=== PATIENT | male | born 1940 | race Caucasian/White ===

== ENCOUNTER 2018-06-14 08:43 | Day surgery (SDC) | payer MEDICARE ==
[~2018-06-14] VITALS: Ht 177.8 cm; Wt 63.6 kg
[2018-06-14 09:11] LABS: HEMATOCRIT 40.3 % (42.0-54.0); MCH 31.6 pg (26.0-34.0); MCHC 34.7 g/dL (31.0-37.0); MEAN PLATELET VOLUME 9.6 fL (7.4-10.4); RBC 4.43 10x6/uL (4.20-6.10); RDW 16.6 % (11.5-14.5); WBC 6.9 10x3/uL (4.8-10.8)
[2018-06-14 09:14] LABS: ANION GAP 21.4 mmol/L (8-16); CARBON DIOXIDE 19.2 mmol/L (21.0-32.0); CREATININE - SERUM 2.2 mg/dL (0.6-1.3); POTASSIUM - SERUM 3.6 mmol/L (3.5-5.1)
[2018-06-14] MEDS ORDERED: BAYER CHEWABLE81 MG PO (09:21)
[2018-06-14] MEDS ORDERED: C-500500 M1 PO (09:21)
[2018-06-14] MEDS ORDERED: VITAMIN B-121000 MCG PO (09:22)
[2018-06-14] MEDS ORDERED: MERIBIN5 MG PO (09:22)
[2018-06-14 09:23] LABS: CALCIUM 5.9 mg/dL (8.5-10.1)
[2018-06-14] MEDS ORDERED: CALCIUM 250+D T1 TAB PO (09:23)
[2018-06-14] MEDS ORDERED: CELEXA10 MG PO (09:23)
[2018-06-14] MEDS ORDERED: CENTRUM MEN'S1 EACH PO (09:23)
[2018-06-14] MEDS ORDERED: BENADRYL A12.5 MG/5 (09:24)
[2018-06-14] MEDS ORDERED: PROSCAR5 MG PO (09:25)
[2018-06-14] MEDS ORDERED: INLYTA PO (09:27)
[2018-06-14] MEDS ORDERED: MEGACE40 MG PO (09:28)
[2018-06-14] MEDS ORDERED: K-DUR20 MEQ PO (09:29)
[2018-06-14] MEDS ORDERED: SALAGEN5 MG PO (09:29)
[2018-06-14] MEDS ORDERED: PROBIOTIC1 EAC1 PO (09:30)
[2018-06-14 09:41] VITALS: BP 116/79; Ht 177.8 cm; Wt 63.6 kg
--- NOTE | 2018-06-16 14:22 | OP ---
PATIENT NAME: XIANG VICTORIA MEDICAL RECORD: [id number] :38 LOCATION:D[facility] ADMISSION DATE: SURGEON: SHMUEL BOLANOS DO DATE OF OPERATION: 06/14/2018 PROCEDURE: Colonoscopy with biopsies and stool collection. INDICATIONS FOR PROCEDURE: 1. 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 2. Personal history of colon polyps. 3. Diverticulosis. 4. Diarrhea. 5. Abnormal weight loss. SCOPE: Olympus video pediatric colonoscope. MEDICATIONS: Propofol 240 mg IV per anesthesia. WITHDRAWAL TIME: 12 minutes. ESTIMATED BLOOD LOSS: Minimal. COMPLICATIONS: None. FINDINGS AND DESCRIPTION OF PROCEDURE: Informed consent was given. The patient was made comfortable with the above medication. After reaching an adequate level of sedation by slow IV push, the patient was placed on his left side. A digital rectal examination was performed and was normal other than palpation of hemorrhoids versus tags. The endoscope was advanced under direct visualization through the rectum to the cecum and terminal ileum. The endoscope was slowly withdrawn and mucosa was carefully examined. The prep quality was excellent. There were no polyps visualized on today's examination. There was evidence of apmhlfov-na-rdjswg diverticulosis involving the descending and sigmoid colon. There was no evidence of diverticulitis. Retroflexion was performed in the rectum with visualization of hemorrhoids/skin tags. There was no active bleeding. During this procedure, multiple cold forceps biopsies were taken to submit for histopathology and to rule out the presence of microscopic colitis. Stool was collected to send off for infectious studies including C. difficile, stool culture, and fecal white blood cells. The endoscope was withdrawn from the patient. The patient tolerated the procedure well and there were no complications. IMPRESSIONS: 1. Diverticulosis. 2. Hemorrhoids/skin tags upon retroflexion. PLAN AND RECOMMENDATIONS: 1. Discharge home when recovery parameters are met. 2. Follow up biopsy specimen results. 3. Continue current medications. 4. Regarding the diarrhea, I feel the etiology is most likely the patient's chemotherapy. Stool was collected to rule out an infectious etiology and random biopsies were taken to rule out microscopic colitis. We will follow these tests to make further recommendations. In the meantime, I would recommend continuing OPERATIVE REPORT [id number] XIANG VICTORIA Lomotil 2 tablets b.i.d. Can consider adding cholestyramine 4 grams daily to b.i.d. to bulk up the stool. These medications will need to be cleared through nephrology. 5. No further recalls are necessary unless symptoms warrant further evaluation. TRANSINT:[id number] Voice Confirmation ID: [id number] DOCUMENT ID: [id number] SHMUEL BOLANOS DO at 1422 CC: [id number] DICTATION DATE: 06/14/18 1101 HAND CLIPPER: 06/14/18 [id number] [facility] 06/14/18 [id number] [place] [address]
== END 2018-06-14 12:25 | disposition home or self-care (01) ==
LOC: D.OPS 08:43
PROVIDERS: Anesthesiology; ATTEND Internal Medicine Gastroenterology
DX: K57.30 Diverticulosis of large intestine without perforation or abscess without bleeding (principal); R19.7 Diarrhea, unspecified; K64.4 Residual hemorrhoidal skin tags; C64.9 Malignant neoplasm of unspecified kidney, except renal pelvis; C79.51 Secondary malignant neoplasm of bone; Z90.5 Acquired absence of kidney; Z86.010 Personal history of colon polyps; Z01.812 Encounter for preprocedural laboratory examination